=== PATIENT | male | born 1950 | race Caucasian/White ===

== ENCOUNTER 2017-10-12 05:15 | Inpatient (IN) | payer OTHER, MEDICARE ==
[~2017-10-12] VITALS: Ht 172.7 cm; Wt 100.3 kg
[2017-10-12] MEDS ORDERED: TAMS0.4C2 PO (05:33)
[2017-10-12] MEDS ORDERED: FINA5TAB PO (05:33)
[2017-10-12] MEDS ORDERED: morphine SULFATE 10 MG/ML, 1ML ONE (05:44)
[2017-10-12] MEDS ORDERED: ONDANSETRON 2MG/ML, 2ML ONE (05:44)
[2017-10-12] MEDS ORDERED: FAMOTIDINE 20 MG/2 ML ONE (05:44)
[2017-10-12] MEDS ORDERED: SODIUM CHLORIDE FLUSH 10ML SYR IVF ONE (06:00)
[2017-10-12] MEDS ORDERED: SODIUM CHLORIDE 0.9% 1,000ML IVBOLUS ONE (06:00)
[2017-10-12] MEDS ORDERED: FAMOTIDINE 20 MG/2 ML IVP ONE (06:00)
[2017-10-12] MEDS ORDERED: ONDANSETRON 2MG/ML, 2ML IVPush ONE (06:00)
[2017-10-12] MEDS ORDERED: morphine SULFATE 10 MG/ML, 1ML IVPush PRN ×2 (06:00→10:30)
[2017-10-12 06:20] LABS: ASPARTATE AMINO TRANSFERASE 14 U/L (15-37); BLOOD UREA NITROGEN 17 mg/dL (7-18)
[2017-10-12 06:34] LABS: IS PT STATUS REG ER OR PRE ER? YES
[2017-10-12 06:41] LABS: HEMOGLOBIN 15.8 g/dL (13.7-18.0); WHITE BLOOD COUNT 10.5 x10^3/uL (3.4-10)
[2017-10-12] MEDS ORDERED: OMNIPAQUE 350 MG/ML, 100ML BOTTLE ONE (06:53)
[2017-10-12] MEDS ORDERED: HYDROcodone/APAP 5/325 TABLET PO PRN (10:30)
[2017-10-12] MEDS ORDERED: GUAIFENESIN/DM 200-20MG, 10ML UDC PO PRN (10:30)
[2017-10-12] MEDS ORDERED: LABETALOL 5MG/ML, 20ML IVPush PRN (10:30)
[2017-10-12] MEDS ORDERED: ONDANSETRON ODT 4 MG PO PRN (10:30)
[2017-10-12] MEDS ORDERED: ONDANSETRON 2MG/ML, 2ML IVPush PRN (10:30)
[2017-10-12] MEDS: ENOXAPARIN 40 MG/0.4 ML SQ SCH (12:34)
[2017-10-12] MEDS: D5%-0.45NACL+KCL 20MEQ 1,000 ML IV SCH ×2 (12:34→20:06)
[2017-10-12 12:49] VITALS: BP 125/66
[2017-10-12 14:45] VITALS: BP 106/63
[2017-10-12 20:13] VITALS: BP 105/67
[2017-10-13 01:49] VITALS: BP 95/63
[2017-10-13] MEDS: D5%-0.45NACL+KCL 20MEQ 1,000 ML IV SCH ×3 (04:30→20:30)
[2017-10-13 05:18] LABS: HEMATOCRIT 44.8 % (39.2-51.8); WHITE BLOOD COUNT 8.1 x10^3/uL (3.4-10)
[2017-10-13 05:37] LABS: ASPARTATE AMINO TRANSFERASE 8 U/L (15-37); BLOOD UREA NITROGEN 10 mg/dL (7-18)
[2017-10-13 06:47] VITALS: BP 105/66
[2017-10-13] MEDS: SENNA/DOCUSATE TABLET PO SCH (09:37)
[2017-10-13] MEDS: FINASTERIDE 5 MG TABLET PO SCH (09:37)
[2017-10-13] MEDS: TAMSULOSIN 0.4 MG CAP.ER.24H PO SCH (09:38)
[2017-10-13 13:08] VITALS: BP 98/61
[2017-10-13] MEDS: ENOXAPARIN 40 MG/0.4 ML SQ SCH (13:37)
[2017-10-13 21:10] VITALS: BP 106/70
[2017-10-14 02:38] VITALS: BP 102/67
[2017-10-14] MEDS: D5%-0.45NACL+KCL 20MEQ 1,000 ML IV SCH ×2 (04:30→12:30)
[2017-10-14 05:22] LABS: HEMATOCRIT 43.4 % (39.2-51.8); HEMOGLOBIN 14.5 g/dL (13.7-18.0); WHITE BLOOD COUNT 8.9 x10^3/uL (3.4-10)
[2017-10-14 05:26] LABS: BLOOD UREA NITROGEN 14 mg/dL (7-18)
[2017-10-14 07:07] VITALS: BP 105/66
[2017-10-14] MEDS: TAMSULOSIN 0.4 MG CAP.ER.24H PO SCH (08:10)
[2017-10-14] MEDS: SENNA/DOCUSATE TABLET PO SCH (08:10)
[2017-10-14] MEDS: FINASTERIDE 5 MG TABLET PO SCH (08:10)
[2017-10-14] MEDS: ENOXAPARIN 40 MG/0.4 ML SQ SCH (12:30)
[2017-10-14 12:48] VITALS: BP 108/69
== END 2017-10-14 13:55 | disposition home or self-care (01) | DRG 390 ==
LOC: ED 06:14 → EDIP 07:43 → 4NOR 10:08 → DCLOUNGE 10-14 13:47
PROVIDERS: ADMIT Internal Medicine; ATTEND Internal Medicine
DX: K56.609 Unspecified intestinal obstruction, unspecified as to partial versus complete obstruction (principal); D72.829 Elevated white blood cell count, unspecified; E78.00 Pure hypercholesterolemia, unspecified; M43.06 Spondylolysis, lumbar region; M43.17 Spondylolisthesis, lumbosacral region; N40.0 Benign prostatic hyperplasia without lower urinary tract symptoms; Z80.0 Family history of malignant neoplasm of digestive organs; Z82.49 Family history of ischemic heart disease and other diseases of the circulatory system
CPT/HCPCS: 36415; 71010; 74177; 80048; 80053; 81003; 82040; 83690; 83735; 84484; 85025; 93005; 96361; 96374; 96375; J1650; J2405; Q9967; J2270; J3480; J7030; S0028

== ENCOUNTER 2017-12-29 01:31 | Inpatient (IN) | payer OTHER, MEDICARE ==
[~2017-12-29] VITALS: Ht 172.7 cm; Wt 92.1 kg
[~2017-12-29 01:31] MED LIST: FINA5TAB PO; TAMS0.4C2 PO
[2017-12-29] MEDS ORDERED: ONDANSETRON 2MG/ML, 2ML ONE (02:19)
[2017-12-29] MEDS ORDERED: MORPHINE SULFATE 4 MG/ML, 1ML ONE ×2 (02:19→03:48)
[2017-12-29 02:21] LABS: BASOPHILS # (AUTO) 0.02 x10^3/uL (0-0.1); BASOPHILS % (AUTO) 0 % (0-1); EOSINOPHILS # (AUTO) 0.07 x10^3/uL (0-0.4); EOSINOPHILS % (AUTO) 1 % (1-7); LYMPHOCYTES # (AUTO) 1.69 x10^3/uL (1-3.4); LYMPHOCYTES % (AUTO) 15 % (22-44); MD NO; MEAN CORPUSCULAR HEMOGLOBIN 30.5 pg (27.5-34.5); MEAN CORPUSCULAR HGB CONC 33.6 g/dL (33.2-36.2); MEAN CORPUSCULAR VOLUME 90.8 fL (81-97); MEAN PLATELET VOLUME 8.9 fL (7.4-10.4); MONOCYTES # (AUTO) 0.82 x10^3/uL (0.2-0.8); MONOCYTES % (AUTO) 7 % (2-9); NEUTROPHILS # (AUTO) 8.67 x10^3/uL (1.8-6.8); NEUTROPHILS % (AUTO) 77 % (42-75); PLATELET COUNT 259 x10^3/uL (130-400); RED BLOOD COUNT 4.94 x10^6/uL (4.38-5.82); RED CELL DISTRIBUTION WIDTH 13.6 % (9.4-14.8)
[2017-12-29] MEDS ORDERED: SODIUM CHLORIDE 0.9% 1,000ML IVBOLUS ONE (02:30)
[2017-12-29] MEDS ORDERED: ONDANSETRON 2MG/ML, 2ML IVPush ONE (02:30)
[2017-12-29] MEDS: MORPHINE SULFATE 4 MG/ML, 1ML IVPush PRN ×2 (02:31→03:50)
[2017-12-29 02:32] LABS: ALANINE AMINOTRANSFERASE 24 U/L (12-78); ALBUMIN 3.8 g/dL (3.4-5.0); ANION GAP 7 mmol/L (5-15); CALCIUM 8.6 mg/dL (8.5-10.1); CHLORIDE 104 mmol/L (98-107); CREATININE 1.06 mg/dL (0.7-1.3)
[2017-12-29 02:37] LABS: ALKALINE PHOSPHATASE 71 U/L (45-117); BILIRUBIN,TOTAL 0.6 mg/dL (0.2-1.0); TOTAL PROTEIN 7.2 g/dL (6.4-8.2); TROPONIN I < 0.015 ng/mL (0.000-0.045)
[2017-12-29] MEDS ORDERED: OMNIPAQUE 350 MG/ML, 100ML BOTTLE ONE (03:04)
[2017-12-29 03:36] LABS: CULTURE INDICATED? YES; MICROSCOPIC INDICATED
[2017-12-29] MEDS ORDERED: SODIUM CHLORIDE 0.9% 1,000 ML IV ONE (04:08)
[2017-12-29] MEDS ORDERED: OMEG1CAP23 PO (04:21)
[2017-12-29] MEDS ORDERED: HYDROmorphone 2 MG/ML, 1ML ONE (04:27)
[2017-12-29] MEDS ORDERED: ONDANSETRON 2MG/ML, 2ML IVPush PRN (04:30)
[2017-12-29] MEDS ORDERED: HYDROmorphone 2 MG/ML, 1ML IVPush PRN (04:30)
[2017-12-29] MEDS ORDERED: hydrALAzine 20 MG/ML, 1ML IVPush PRN (05:00)
[2017-12-29] MEDS ORDERED: ACETAMINOPHEN 325 MG TABLET PO PRN (05:00)
[2017-12-29 05:33] VITALS: BP 122/75
[2017-12-29] MEDS: LACTATED RINGERS 1,000 ML IV SCH ×3 (06:06→21:50)
[2017-12-29 08:00] VITALS: BP 101/61
[2017-12-29] MEDS: morphine SULFATE 10 MG/ML, 1ML IVPush PRN ×3 (08:04→19:34)
[2017-12-29] MEDS ORDERED: FINASTERIDE 5 MG TABLET PO SCH (09:00)
[2017-12-29] MEDS ORDERED: TAMSULOSIN 0.4 MG CAP.ER.24H PO SCH (09:00)
[2017-12-29] MEDS ORDERED: OMEGA-3/FISH OIL CAPSULE PO SCH (09:00)
[2017-12-29 17:20] VITALS: BP 127/72
[2017-12-29 19:59] VITALS: BP 133/71
[2017-12-30 02:54] VITALS: BP 115/66
[2017-12-30] MEDS: LACTATED RINGERS 1,000 ML IV SCH ×2 (05:08→13:04)
[2017-12-30 06:59] VITALS: BP 97/69
[2017-12-30 12:56] VITALS: BP 104/67
[2017-12-30 18:41] VITALS: BP 108/70
[2017-12-30] MEDS ORDERED: TAMSULOSIN 0.4 MG CAP.ER.24H PO SCH (21:00)
[2017-12-30] MEDS ORDERED: FINASTERIDE 5 MG TABLET PO SCH (21:00)
[2017-12-30] MEDS ORDERED: OMEGA-3/FISH OIL CAPSULE PO SCH (21:00)
[2017-12-31 01:23] VITALS: BP 112/69
[2017-12-31 05:03] LABS: ANION GAP 6 mmol/L (5-15); BASOPHILS # (AUTO) 0.02 x10^3/uL (0-0.1); BASOPHILS % (AUTO) 0 % (0-1); CALCIUM 8.2 mg/dL (8.5-10.1); CHLORIDE 106 mmol/L (98-107); EOSINOPHILS # (AUTO) 0.24 x10^3/uL (0-0.4); EOSINOPHILS % (AUTO) 3 % (1-7); LYMPHOCYTES # (AUTO) 2.08 x10^3/uL (1-3.4); LYMPHOCYTES % (AUTO) 29 % (22-44); MD NO; MEAN CORPUSCULAR HEMOGLOBIN 30.7 pg (27.5-34.5); MEAN CORPUSCULAR HGB CONC 33.5 g/dL (33.2-36.2); MEAN CORPUSCULAR VOLUME 91.7 fL (81-97); MEAN PLATELET VOLUME 9.2 fL (7.4-10.4); MONOCYTES # (AUTO) 0.81 x10^3/uL (0.2-0.8); MONOCYTES % (AUTO) 11 % (2-9); NEUTROPHILS # (AUTO) 4.08 x10^3/uL (1.8-6.8); NEUTROPHILS % (AUTO) 56 % (42-75); PLATELET COUNT 237 x10^3/uL (130-400); RED BLOOD COUNT 4.54 x10^6/uL (4.38-5.82); RED CELL DISTRIBUTION WIDTH 14.1 % (9.4-14.8)
[2017-12-31 05:09] LABS: ALANINE AMINOTRANSFERASE 18 U/L (12-78); ALKALINE PHOSPHATASE 61 U/L (45-117); BILIRUBIN,TOTAL 0.7 mg/dL (0.2-1.0); CREATININE 0.85 mg/dL (0.7-1.3); TOTAL PROTEIN 5.8 g/dL (6.4-8.2)
[2017-12-31 09:58] VITALS: BP 121/75
[2017-12-31 12:27] VITALS: BP 124/75
== END 2017-12-31 17:35 | disposition home or self-care (01) | DRG 390 ==
LOC: ED 02:11 → EDIP 04:08 → 4NOR 05:09
PROVIDERS: ADMIT Hospitalist; ATTEND Family Medicine
DX: K56.51 Intestinal adhesions [bands], with partial obstruction (principal); D72.829 Elevated white blood cell count, unspecified; E78.5 Hyperlipidemia, unspecified; N40.0 Benign prostatic hyperplasia without lower urinary tract symptoms; Z82.49 Family history of ischemic heart disease and other diseases of the circulatory system; Z80.0 Family history of malignant neoplasm of digestive organs
CPT/HCPCS: 36415; 74177; 74250; 80053; 81001; 83690; 83735; 84100; 84484; 85025; 87086; 96374; 96375; 96376; J1170; J2405; Q9967; J2270; J7030; J7120

== ENCOUNTER 2018-01-24 00:11 | Inpatient (IN) | payer OTHER, MEDICARE ==
[~2018-01-24] VITALS: Ht 172.7 cm; Wt 88.2 kg
[~2018-01-24 00:11] MED LIST changes: +OMEG1CAP23 PO
[2018-01-24] MEDS ORDERED: ONDANSETRON 2MG/ML, 2ML IVPush ONE ×2 (00:30→03:30)
[2018-01-24] MEDS ORDERED: SODIUM CHLORIDE FLUSH 10ML SYR IVF ONE ×2 (00:30→01:30)
[2018-01-24] MEDS ORDERED: FAMOTIDINE 20 MG/2 ML IVP ONE (00:30)
[2018-01-24 00:58] LABS: BASOPHILS # (AUTO) 0.03 x10^3/uL (0-0.1); BASOPHILS % (AUTO) 0 % (0-1); EOSINOPHILS # (AUTO) 0.09 x10^3/uL (0-0.4); EOSINOPHILS % (AUTO) 1 % (1-7); LYMPHOCYTES # (AUTO) 1.68 x10^3/uL (1-3.4); LYMPHOCYTES % (AUTO) 14 % (22-44); MD NO; MEAN CORPUSCULAR HEMOGLOBIN 30.6 pg (27.5-34.5); MEAN CORPUSCULAR HGB CONC 33.5 g/dL (33.2-36.2); MEAN CORPUSCULAR VOLUME 91.3 fL (81-97); MEAN PLATELET VOLUME 8.6 fL (7.4-10.4); MONOCYTES # (AUTO) 0.75 x10^3/uL (0.2-0.8); MONOCYTES % (AUTO) 7 % (2-9); NEUTROPHILS # (AUTO) 9.09 x10^3/uL (1.8-6.8); NEUTROPHILS % (AUTO) 78 % (42-75); PLATELET COUNT 299 x10^3/uL (130-400); RED BLOOD COUNT 5.65 x10^6/uL (4.38-5.82)
[2018-01-24 01:11] LABS: ALANINE AMINOTRANSFERASE 22 U/L (12-78); ALBUMIN 3.9 g/dL (3.4-5.0); ANION GAP 6 mmol/L (5-15); CALCIUM 9.6 mg/dL (8.5-10.1); CHLORIDE 104 mmol/L (98-107); CREATININE 1.11 mg/dL (0.7-1.3)
[2018-01-24 01:13] LABS: ALKALINE PHOSPHATASE 77 U/L (45-117); BILIRUBIN,TOTAL 0.7 mg/dL (0.2-1.0); TOTAL PROTEIN 7.6 g/dL (6.4-8.2)
[2018-01-24] MEDS ORDERED: ONDANSETRON 2MG/ML, 2ML ONE ×2 (02:20→12:34)
[2018-01-24] MEDS ORDERED: FAMOTIDINE 20 MG/2 ML ONE (02:21)
[2018-01-24] MEDS ORDERED: MORPHINE SULFATE 4 MG/ML, 1ML IVPush PRN (03:30)
[2018-01-24] MEDS ORDERED: SODIUM CHLORIDE 0.9% 1,000 ML IV ONE (03:31)
[2018-01-24] MEDS ORDERED: MORPHINE SULFATE 4 MG/ML, 1ML ONE (03:58)
[2018-01-24] MEDS ORDERED: SODIUM CHLORIDE FLUSH 10ML SYR IVF PRN (04:00)
[2018-01-24] MEDS: SODIUM CHLORIDE 0.9% 1,000 ML IV SCH ×3 (04:54→23:21)
[2018-01-24] MEDS ORDERED: hydrALAzine 20 MG/ML, 1ML IVPush PRN (05:00)
[2018-01-24 05:16] VITALS: BP 123/80
[2018-01-24] MEDS ORDERED: OMNIPAQUE 350 MG/ML, 100ML BOTTLE ONE (05:55)
[2018-01-24] MEDS: ENOXAPARIN 40 MG/0.4 ML SQ SCH (07:39)
[2018-01-24 07:45] VITALS: BP 128/72
[2018-01-24] MEDS ORDERED: FENTANYL PF 100 MCG/2ML ONE ×2 (12:23→14:35)
[2018-01-24] MEDS ORDERED: MIDAZOLAM 1 MG/ML, 2ML ONE (12:23)
[2018-01-24] MEDS ORDERED: PROPOFOL 10 MG/ML, 20ML ONE (12:34)
[2018-01-24] MEDS ORDERED: DEXAMETHASONE 4 MG/ML, 1ML ONE (12:34)
[2018-01-24] MEDS ORDERED: GLYCOPYRROLATE 0.2MG/1ML, 5ML ONE (12:34)
[2018-01-24] MEDS ORDERED: NEOSTIGMINE 1 MG/ML, 10ML ONE (12:34)
[2018-01-24] MEDS ORDERED: CEFOTETAN 2 GM ONE (12:34)
[2018-01-24] MEDS ORDERED: KETOROLAC 30 MG/1 ML ONE (12:34)
[2018-01-24] MEDS ORDERED: SUCCINYLCHOLINE 20 MG/ML, 10ML ONE (12:34)
[2018-01-24] MEDS ORDERED: ROCURONIUM 10MG/ML,5ML ONE (12:34)
[2018-01-24] MEDS ORDERED: ACETAMINOPHEN 325 MG TABLET PO PRN ×2 (13:00→16:00)
[2018-01-24] MEDS ORDERED: EPHEDRINE 50 MG/ML, 1ML IVPush PRN (13:00)
[2018-01-24] MEDS ORDERED: MEPERIDINE/PF 25MG/0.5ML IVPush PRN (13:00)
[2018-01-24] MEDS ORDERED: LABETALOL 5MG/ML, 20ML IV PRN (13:00)
[2018-01-24] MEDS ORDERED: HYDROcodone/APAP 7.5-325MG/15ML UDC PO PRN (13:00)
[2018-01-24] MEDS ORDERED: METOPROLOL 1 MG/ML, 5ML IV PRN (13:00)
[2018-01-24] MEDS ORDERED: MIDAZOLAM 1 MG/ML, 2ML IV PRN (13:00)
[2018-01-24] MEDS ORDERED: OXYcodone 5 MG/5 ML ORAL.SOL UDC PO PRN (13:00)
[2018-01-24] MEDS ORDERED: hydrALAzine 20 MG/ML, 1ML IV PRN ×2 (13:00→16:00)
[2018-01-24] MEDS ORDERED: PROMETHAZINE 25 MG/ML, 1ML IV PRN (13:00)
[2018-01-24] MEDS ORDERED: ALBUTEROL SULFATE 2.5 MG/3 ML NPPB PRN (13:00)
[2018-01-24] MEDS ORDERED: DIAZEPAM 5 MG/ML, 2ML IVPush PRN (13:00)
[2018-01-24] MEDS ORDERED: PROMETHAZINE 12.5 MG SUPP PR PRN (13:00)
[2018-01-24] MEDS ORDERED: morphine SULFATE 10 MG/ML, 1ML IV PRN (13:00)
[2018-01-24] MEDS ORDERED: ONDANSETRON 2MG/ML, 2ML IVPush PRN (13:00)
[2018-01-24] MEDS ORDERED: HYDROmorphone PCA 30 MG/30 ML ONE (14:24)
[2018-01-24] MEDS: FENTANYL PF 100 MCG/2ML IV PRN ×2 (14:35→14:43)
[2018-01-24] MEDS ORDERED: HYDROmorphone PCA 30 MG/30 ML IV PRN (15:00)
[2018-01-24 15:30] VITALS: BP 99/62
[2018-01-24] MEDS ORDERED: KETOROLAC 30 MG/1 ML IV PRN (16:00)
[2018-01-24] MEDS ORDERED: ACETAMINOPHEN 650 MG SUPP PR PRN (16:00)
[2018-01-24 19:45] VITALS: BP 108/69
[2018-01-25 00:01] VITALS: BP 105/58
[2018-01-25 04:55] LABS: BASOPHILS # (AUTO) 0.09 x10^3/uL (0-0.1); BASOPHILS % (AUTO) 1 % (0-1); EOSINOPHILS # (AUTO) 0.05 x10^3/uL (0-0.4); EOSINOPHILS % (AUTO) 0 % (1-7); LYMPHOCYTES # (AUTO) 1.65 x10^3/uL (1-3.4); LYMPHOCYTES % (AUTO) 11 % (22-44); MD NO; MEAN CORPUSCULAR HEMOGLOBIN 30.5 pg (27.5-34.5); MEAN CORPUSCULAR HGB CONC 33.5 g/dL (33.2-36.2); MEAN CORPUSCULAR VOLUME 91.2 fL (81-97); MONOCYTES # (AUTO) 1.33 x10^3/uL (0.2-0.8); MONOCYTES % (AUTO) 9 % (2-9); NEUTROPHILS # (AUTO) 11.43 x10^3/uL (1.8-6.8); NEUTROPHILS % (AUTO) 79 % (42-75); PLATELET COUNT 259 x10^3/uL (130-400); RED BLOOD COUNT 4.97 x10^6/uL (4.38-5.82)
[2018-01-25 05:07] LABS: ALBUMIN 2.9 g/dL (3.4-5.0); ANION GAP 6 mmol/L (5-15); CALCIUM 8.3 mg/dL (8.5-10.1); CHLORIDE 107 mmol/L (98-107)
[2018-01-25 05:09] LABS: CREATININE 1.01 mg/dL (0.7-1.3)
[2018-01-25 05:46] LABS: MICROSCOPIC INDICATED
[2018-01-25 05:50] LABS: CULTURE INDICATED? YES
[2018-01-25 07:50] VITALS: BP 115/72
[2018-01-25] MEDS: ENOXAPARIN 40 MG/0.4 ML SQ SCH (08:36)
[2018-01-25] MEDS: SODIUM CHLORIDE 0.9% 1,000 ML IV SCH ×2 (08:48→17:10)
[2018-01-25 14:48] VITALS: BP 95/78
[2018-01-25 19:18] VITALS: BP 112/73
[2018-01-26 02:02] VITALS: BP 116/72
[2018-01-26] MEDS: SODIUM CHLORIDE 0.9% 1,000 ML IV SCH (03:15)
[2018-01-26 05:52] LABS: BASOPHILS # (AUTO) 0.03 x10^3/uL (0-0.1); BASOPHILS % (AUTO) 0 % (0-1); EOSINOPHILS # (AUTO) 0.32 x10^3/uL (0-0.4); EOSINOPHILS % (AUTO) 3 % (1-7); LYMPHOCYTES # (AUTO) 1.63 x10^3/uL (1-3.4); LYMPHOCYTES % (AUTO) 15 % (22-44); MD NO; MEAN CORPUSCULAR HEMOGLOBIN 30.8 pg (27.5-34.5); MEAN CORPUSCULAR HGB CONC 33.6 g/dL (33.2-36.2); MEAN CORPUSCULAR VOLUME 91.5 fL (81-97); MEAN PLATELET VOLUME 9.2 fL (7.4-10.4); MONOCYTES # (AUTO) 0.93 x10^3/uL (0.2-0.8); MONOCYTES % (AUTO) 9 % (2-9); NEUTROPHILS # (AUTO) 8.04 x10^3/uL (1.8-6.8); NEUTROPHILS % (AUTO) 73 % (42-75); PLATELET COUNT 243 x10^3/uL (130-400); RED BLOOD COUNT 4.69 x10^6/uL (4.38-5.82); RED CELL DISTRIBUTION WIDTH 14.2 % (9.4-14.8)
[2018-01-26 05:58] LABS: ALBUMIN 2.9 g/dL (3.4-5.0); ANION GAP 5 mmol/L (5-15); CALCIUM 8.7 mg/dL (8.5-10.1); CHLORIDE 107 mmol/L (98-107); CREATININE 0.91 mg/dL (0.7-1.3)
[2018-01-26 06:30] VITALS: BP 118/69
[2018-01-26] MEDS: ENOXAPARIN 40 MG/0.4 ML SQ SCH (07:48)
[2018-01-26 07:56] VITALS: BP 111/71
[2018-01-26] MEDS: D5%-0.45NACL+KCL 20MEQ 1,000 ML IV SCH ×2 (07:59→17:38)
[2018-01-26 12:00] VITALS: BP 101/60
[2018-01-26] MEDS: FINASTERIDE 5 MG TABLET PO SCH (16:33)
[2018-01-26] MEDS: TAMSULOSIN 0.4 MG CAP.ER.24H PO SCH (16:33)
[2018-01-26 19:20] VITALS: BP 131/80
[2018-01-27 01:16] VITALS: BP 124/79
[2018-01-27] MEDS: D5%-0.45NACL+KCL 20MEQ 1,000 ML IV SCH ×2 (03:35→14:35)
[2018-01-27 06:15] LABS: BASOPHILS # (AUTO) 0.01 x10^3/uL (0-0.1); BASOPHILS % (AUTO) 0 % (0-1); EOSINOPHILS # (AUTO) 0.22 x10^3/uL (0-0.4); EOSINOPHILS % (AUTO) 2 % (1-7); LYMPHOCYTES # (AUTO) 1.21 x10^3/uL (1-3.4); LYMPHOCYTES % (AUTO) 12 % (22-44); MD NO; MEAN CORPUSCULAR HEMOGLOBIN 30.8 pg (27.5-34.5); MEAN CORPUSCULAR HGB CONC 33.9 g/dL (33.2-36.2); MEAN CORPUSCULAR VOLUME 91.1 fL (81-97); MEAN PLATELET VOLUME 9.4 fL (7.4-10.4); MONOCYTES # (AUTO) 0.78 x10^3/uL (0.2-0.8); MONOCYTES % (AUTO) 8 % (2-9); NEUTROPHILS # (AUTO) 7.87 x10^3/uL (1.8-6.8); NEUTROPHILS % (AUTO) 78 % (42-75); PLATELET COUNT 206 x10^3/uL (130-400); RED BLOOD COUNT 4.93 x10^6/uL (4.38-5.82); RED CELL DISTRIBUTION WIDTH 14.1 % (9.4-14.8)
[2018-01-27 06:26] LABS: ANION GAP 7 mmol/L (5-15); CALCIUM 8.9 mg/dL (8.5-10.1); CHLORIDE 105 mmol/L (98-107); CREATININE 0.76 mg/dL (0.7-1.3)
[2018-01-27 07:30] VITALS: BP 167/91
[2018-01-27] MEDS: ONDANSETRON 2MG/ML, 2ML IVPush PRN ×3 (07:53→23:39)
[2018-01-27] MEDS ORDERED: FINASTERIDE 5 MG TABLET PO SCH (09:00)
[2018-01-27] MEDS ORDERED: TAMSULOSIN 0.4 MG CAP.ER.24H PO SCH (09:00)
[2018-01-27] MEDS: ENOXAPARIN 40 MG/0.4 ML SQ SCH (10:08)
[2018-01-27] MEDS: TAMSULOSIN 0.4 MG CAP.ER.24H PO SCH (10:08)
[2018-01-27] MEDS: FINASTERIDE 5 MG TABLET PO SCH (10:09)
[2018-01-27 12:30] VITALS: BP 128/82
[2018-01-27] MEDS: HYDROcodone/APAP 5/325 TABLET PO PRN ×2 (15:46→20:19)
[2018-01-27 19:49] VITALS: BP 117/67
[2018-01-27] MEDS ORDERED: DOCUSATE 100 MG CAPSULE ONE (20:17)
[2018-01-27] MEDS: DOCUSATE 100 MG CAPSULE PO SCH (20:19)
[2018-01-28 00:20] VITALS: BP 125/70
[2018-01-28] MEDS: HYDROcodone/APAP 5/325 TABLET PO PRN (00:34)
[2018-01-28] MEDS: D5%-0.45NACL+KCL 20MEQ 1,000 ML IV SCH ×3 (00:35→22:37)
[2018-01-28 05:53] LABS: CHLORIDE 105 mmol/L (98-107)
[2018-01-28 05:58] LABS: BASOPHILS # (AUTO) 0.06 x10^3/uL (0-0.1); BASOPHILS % (AUTO) 1 % (0-1); EOSINOPHILS # (AUTO) 0.28 x10^3/uL (0-0.4); EOSINOPHILS % (AUTO) 3 % (1-7); LYMPHOCYTES # (AUTO) 1.42 x10^3/uL (1-3.4); LYMPHOCYTES % (AUTO) 16 % (22-44); MD NO; MEAN CORPUSCULAR HEMOGLOBIN 30.5 pg (27.5-34.5); MEAN CORPUSCULAR HGB CONC 33.4 g/dL (33.2-36.2); MEAN CORPUSCULAR VOLUME 91.4 fL (81-97); MEAN PLATELET VOLUME 8.8 fL (7.4-10.4); MONOCYTES # (AUTO) 0.81 x10^3/uL (0.2-0.8); MONOCYTES % (AUTO) 9 % (2-9); NEUTROPHILS # (AUTO) 6.23 x10^3/uL (1.8-6.8); NEUTROPHILS % (AUTO) 71 % (42-75); PLATELET COUNT 300 x10^3/uL (130-400); RED BLOOD COUNT 5.02 x10^6/uL (4.38-5.82); RED CELL DISTRIBUTION WIDTH 13.8 % (9.4-14.8)
[2018-01-28 06:01] LABS: ALBUMIN 3.1 g/dL (3.4-5.0); ANION GAP 4 mmol/L (5-15); CALCIUM 9.2 mg/dL (8.5-10.1); CREATININE 0.84 mg/dL (0.7-1.3)
[2018-01-28] MEDS: TAMSULOSIN 0.4 MG CAP.ER.24H PO SCH (09:15)
[2018-01-28] MEDS: FINASTERIDE 5 MG TABLET PO SCH (09:15)
[2018-01-28] MEDS: ENOXAPARIN 40 MG/0.4 ML SQ SCH (09:15)
[2018-01-28] MEDS: DOCUSATE 100 MG CAPSULE PO SCH ×2 (09:15→19:59)
[2018-01-28] MEDS ORDERED: BISACODYL 10 MG SUPP PR PRN (09:30)
[2018-01-28 09:38] VITALS: BP 136/84
[2018-01-28 14:00] VITALS: BP 115/80
[2018-01-28 20:59] VITALS: BP 124/74
[2018-01-29 01:48] VITALS: BP 102/62
[2018-01-29 05:04] LABS: BASOPHILS # (AUTO) 0.12 x10^3/uL (0-0.1); BASOPHILS % (AUTO) 1 % (0-1); EOSINOPHILS # (AUTO) 0.33 x10^3/uL (0-0.4); EOSINOPHILS % (AUTO) 4 % (1-7); LYMPHOCYTES # (AUTO) 1.27 x10^3/uL (1-3.4); LYMPHOCYTES % (AUTO) 15 % (22-44); MD NO; MEAN CORPUSCULAR HEMOGLOBIN 30.5 pg (27.5-34.5); MEAN CORPUSCULAR HGB CONC 33.3 g/dL (33.2-36.2); MEAN CORPUSCULAR VOLUME 91.6 fL (81-97); MEAN PLATELET VOLUME 8.4 fL (7.4-10.4); MONOCYTES # (AUTO) 0.78 x10^3/uL (0.2-0.8); MONOCYTES % (AUTO) 9 % (2-9); NEUTROPHILS # (AUTO) 5.94 x10^3/uL (1.8-6.8); NEUTROPHILS % (AUTO) 70 % (42-75); PLATELET COUNT 251 x10^3/uL (130-400); RED BLOOD COUNT 4.17 x10^6/uL (4.38-5.82); RED CELL DISTRIBUTION WIDTH 14.2 % (9.4-14.8)
[2018-01-29 05:10] LABS: ALBUMIN 2.6 g/dL (3.4-5.0); ANION GAP 6 mmol/L (5-15); CALCIUM 8.3 mg/dL (8.5-10.1); CHLORIDE 109 mmol/L (98-107); CREATININE 0.71 mg/dL (0.7-1.3)
[2018-01-29 06:32] VITALS: BP 102/65
[2018-01-29] MEDS: TAMSULOSIN 0.4 MG CAP.ER.24H PO SCH (08:21)
[2018-01-29] MEDS: DOCUSATE 100 MG CAPSULE PO SCH ×2 (08:21→20:11)
[2018-01-29] MEDS: FINASTERIDE 5 MG TABLET PO SCH (08:22)
[2018-01-29] MEDS: ENOXAPARIN 40 MG/0.4 ML SQ SCH (08:22)
[2018-01-29] MEDS: D5%-0.45NACL+KCL 20MEQ 1,000 ML IV SCH (11:12)
[2018-01-29 12:36] VITALS: BP 114/64
[2018-01-29 18:49] VITALS: BP 113/71
[2018-01-30 01:22] VITALS: BP 108/69
[2018-01-30 05:34] LABS: BASOPHILS # (AUTO) 0.04 x10^3/uL (0-0.1); BASOPHILS % (AUTO) 1 % (0-1); EOSINOPHILS # (AUTO) 0.29 x10^3/uL (0-0.4); EOSINOPHILS % (AUTO) 4 % (1-7); LYMPHOCYTES # (AUTO) 1.64 x10^3/uL (1-3.4); LYMPHOCYTES % (AUTO) 21 % (22-44); MD NO; MEAN CORPUSCULAR HEMOGLOBIN 30.6 pg (27.5-34.5); MEAN CORPUSCULAR HGB CONC 33.3 g/dL (33.2-36.2); MEAN CORPUSCULAR VOLUME 91.8 fL (81-97); MEAN PLATELET VOLUME 8.7 fL (7.4-10.4); MONOCYTES # (AUTO) 0.82 x10^3/uL (0.2-0.8); MONOCYTES % (AUTO) 11 % (2-9); NEUTROPHILS # (AUTO) 4.86 x10^3/uL (1.8-6.8); NEUTROPHILS % (AUTO) 64 % (42-75); PLATELET COUNT 264 x10^3/uL (130-400); RED BLOOD COUNT 4.21 x10^6/uL (4.38-5.82)
[2018-01-30 05:40] LABS: ALBUMIN 2.7 g/dL (3.4-5.0); ANION GAP 9 mmol/L (5-15); CALCIUM 8.2 mg/dL (8.5-10.1); CHLORIDE 107 mmol/L (98-107); CREATININE 0.74 mg/dL (0.7-1.3)
[2018-01-30 06:38] VITALS: BP 103/65
[2018-01-30] MEDS: ENOXAPARIN 40 MG/0.4 ML SQ SCH (08:00)
[2018-01-30] MEDS: TAMSULOSIN 0.4 MG CAP.ER.24H PO SCH (08:20)
[2018-01-30] MEDS: DOCUSATE 100 MG CAPSULE PO SCH (08:20)
[2018-01-30] MEDS: FINASTERIDE 5 MG TABLET PO SCH (08:21)
[2018-01-30] MEDS ORDERED: ACET325C PO (11:29)
[2018-01-30 11:43] VITALS: BP 117/76
== END 2018-01-30 12:15 | disposition home or self-care (01) | DRG 331 ==
LOC: ED 02:00 → EDIP 03:38 → 4NOR 04:30
PROVIDERS: ADMIT Hospitalist; ATTEND Hospitalist
PROC: 0DT80ZZ Resection of Small Intestine, Open Approach (ICD-10-PCS; principal; 2018-01-24 13:30)
PROC: 5A09357 Assistance with Respiratory Ventilation, Less than 24 Consecutive Hours, Continuous Positive Airway Pressure (ICD-10-PCS; 2018-01-27)
PROC: 5A09357 Assistance with Respiratory Ventilation, Less than 24 Consecutive Hours, Continuous Positive Airway Pressure (ICD-10-PCS; 2018-01-29)
PROC: 5A09357 Assistance with Respiratory Ventilation, Less than 24 Consecutive Hours, Continuous Positive Airway Pressure (ICD-10-PCS; 2018-01-30)
DX: K56.52 Intestinal adhesions [bands] with complete obstruction (principal); K76.0 Fatty (change of) liver, not elsewhere classified; E66.9 Obesity, unspecified; E78.5 Hyperlipidemia, unspecified; K57.10 Diverticulosis of small intestine without perforation or abscess without bleeding; M43.16 Spondylolisthesis, lumbar region; N40.0 Benign prostatic hyperplasia without lower urinary tract symptoms; R82.71 Bacteriuria
CPT/HCPCS: 36415; 74021; 74177; 80048; 80053; 81001; 82040; 83690; 83735; 84100; 85025; 87086; 88305; 88307; 93005; 96374; 96375; J1100; J1170; J1650; J1885; J2250; J2405; J2704; J2710; J3010; J3490; Q9967; J0330; J3480; J7030; S0028; S0074